=== PATIENT | male | born 1960 | race Caucasian/White ===

== ENCOUNTER 2022-05-21 10:41 | Emergency (ER) | payer OTHER ==
[2022-05-21] MEDS ORDERED: PERCOCET 5/325 T1 EA PO ×2 (11:54→11:55)
== END 2022-05-21 13:02 | disposition home or self-care (01) ==
LOC: ER1 10:41
DX: S59.201A Unspecified physeal fracture of lower end of radius, right arm, initial encounter for closed fracture (principal); F17.210 Nicotine dependence, cigarettes, uncomplicated; I11.9 Hypertensive heart disease without heart failure; I25.2 Old myocardial infarction; W01.0XXA Fall on same level from slipping, tripping and stumbling without subsequent striking against object, initial encounter; Y92.830 Public park as the place of occurrence of the external cause
CPT/HCPCS: 73110; 99283

== ENCOUNTER 2022-05-27 10:22 | Emergency (ER) | payer OTHER ==
[~2022-05-27 10:22] MED LIST: PERCOCET 5/325 T1 EA PO
== END 2022-05-27 12:34 | disposition home or self-care (01) ==
LOC: ER1 10:22
DX: S52.501A Unspecified fracture of the lower end of right radius, initial encounter for closed fracture (principal); I11.9 Hypertensive heart disease without heart failure; E78.5 Hyperlipidemia, unspecified; J44.9 Chronic obstructive pulmonary disease, unspecified; F17.210 Nicotine dependence, cigarettes, uncomplicated; X58.XXXA Exposure to other specified factors, initial encounter
CPT/HCPCS: 29125; 73100; 96374; 99283; J2270